=== PATIENT | male | born 1990 | race Caucasian/White ===

== ENCOUNTER 2024-09-17 19:43 | Emergency (ER) | payer SELFPAY ==
[2024-09-17 19:52] VITALS: BP 134/87
[2024-09-17 20:05] LABS: % Basophils 0.5 % (0-2); % Eosinophils 2.1 % (0-6); % Immature Granulocytes 0.5 % (0-0.5); % Lymphocytes 30.7 % (20.5-51.1); % Monocytes 5.7 % (1.7-9.3); % Neutrophils 60.5 % (42.2-75.2); Absolute Eosinophils 0.2 10^3/uL (0-0.7); Absolute Lymphocytes 2.6 10^3/uL (1.2-3.4); Absolute Monocytes 0.5 10^3/uL (0.1-0.6); Absolute Neutrophils 5.1 10^3/uL (1.4-6.5); Hematocrit 44.6 % (39.0-52.0); Hemoglobin 15.5 g/dL (13.0-18.0); Mean Corp Hgb Conc. 34.8 g/dL (33.0-37.0); Mean Corpuscular Hgb 30.4 pg (27.0-31.0); Mean Corpuscular Volume 87.5 fL (80.0-94.0); Nucleated Red Blood Cells % 0 % (-); Platelet Count 191 10^3/uL (130-400); Red Cell Dist. Width 12.3 % (11.5-14.5); White Blood Cell Count 8.5 10^3/uL (4.8-10.8)
[2024-09-17 20:26] LABS: ALT (SGPT) 38 U/L (0-50); AST (SGOT) 28 U/L (17-59); Albumin 4.8 g/dl (3.5-5.0); Alkaline Phosphatase 43 U/L (38-126); Blood Urea Nitrogen 12 mg/dl (9-20); Calcium 9.3 mg/dl (8.4-10.2); Carbon Dioxide 28 mmol/L (22-30); Chloride 99 mmol/L (98-107); Glucose 117 mg/dl (70-99); Sodium 137 mmol/L (135-145); eGFR > 60.00
[2024-09-17 20:38] LABS: Troponin I < 0.012 ng/ml
[2024-09-17 22:00] VITALS: BP 125/76
--- NOTE | 2024-09-17 22:14 | ED.GENMED ---
History of Present Illness
General
Chief Complaint: Chest Pain
Time Seen by Provider: 09/17/24 21:48
History of Present Illness
History of Present Illness:
34-year-old male with history of high blood pressure presenting for intermittent left-sided chest pain. Reports symptoms for the past 3 days. Denies any inciting event to the symptoms. Denies any exertional component. Pain is sharp in quality
and lasts about a second, resolves on its own. Denies known history of cardiac issues. Denies difficulty breathing. Denies history of blood clot, recent surgery, recent travel. Denies cough or fever or recent illness. Denies abdominal pain or
GI symptoms. Denies additional acute medical complaints
Phy Exam
Physical Exam
Physical Exam:
General: Well-appearing, no clinical signs of dehydration, nontoxic and in no acute distress
HEENT: protecting airway
Neck: appears supple
CV: Normal heart rate, regular rhythm, no evidence of cyanosis
Resp: No accessory muscle use, no increased work of breathing, lungs clear to auscultation bilaterally
Abd: Soft and non-distended, no tenderness to palpation
Extremities: No deformities, no swelling, no erythema
Neuro: alert, no focal neurologic deficit
: deferred
Rectal: deferred
Psych: Normal affect
Skin: Intact
Scores
Heart Score for Chest Pain Patients
STEMI patient?: No
History: Slightly or Non-Suspicious
ECG: Normal
Age: </= 45 years
Risk Factors: 1 or 2 Risk Factors
Troponin: </= Normal Limit
Heart Score for Chest Pain Patients: 1
Heart Score Risk: 2.5% MACE over next 6 weeks
Course
Orders/Labs/Results
Orders:
Orders
09/17/24 19:45
EKG [Electrocardiogram (*1)] Urgent
Reason for Study: Chest Pain
EKG- Treatment ONCE
09/17/24 19:54
CR Chest - 2 Views Urgent
Comment:
Reason For Exam: chest pain
09/17/24 19:58
Complete Blood Count/With Diff Urgent
Comprehensive Metabolic Panel Urgent
Troponin I Urgent
Abnormal Lab Results
09/17/24
19:58
Glucose 117 H mg/dl
(70-99)
09/17/24 19:58
09/17/24 19:58
Vital Signs
Initial and Last Documented VS:
Initial Vital Signs
Temp Pulse Resp BP Pulse Ox
98.7 F 82 15 134/87 98
09/17/24 19:52 09/17/24 19:52 09/17/24 19:52 09/17/24 19:52 09/17/24 19:52
Last Documented Vital Signs
Temp Pulse Resp BP Pulse Ox
98.7 F 81 18 125/76 98
09/17/24 19:52 09/17/24 22:00 09/17/24 22:00 09/17/24 22:00 09/17/24 22:00
MDM/Problems Addressed
MDM/Problems Addressed:
34-year-old male with history of hypertension presenting for intermittent chest pain since Wednesday. Vitals are normal.
On exam patient is well-appearing, no acute distress or discomfort. He does not currently have the pain. EKG obtained on arrival, nonischemic, no arrhythmia. Unremarkable cardiac and pulmonary exam. Low suspicion for ACS given low risk patient
and normal EKG. Patient had laboratory analysis prior to my assessment including troponin, undetectable. At this time patient is a low risk by heart score. PERC negative without concern for PE. Chest x-ray without sign of acute abnormality or
pneumothorax. At this time given low risk nature, feel stable for discharge with outpatient follow-up. Will provide information for cardiology. Return precautions discussed and patient verbalized understanding
*EKG
Interpreted by ED Provider?: Yes
EKG Intrepretation Date: 09/17/24
EKG Intrepretation Time: 22:17
Interpretation: normal
Heart Rate: 76
Rate: normal
Rhythm: sinus
[place]: normal axis
Interval: normal interval
QRS Pattern: normal QRS
Ischemia: no ischemia
*Critical Care Note
Total Time (30-74mins, 75-104mins- exclusive of procedures): Not Applicable
ED Attending Note
-
Portions of this chart may have been created with voice recognition software.� Occasional wrong word or��sound alike� substitutions may have occurred due to the inherent limitations of voice recognition software.
Discharge Plan
Departure
Patient Disposition: Home (Routine Discharge)
Date of Disposition: 09/17/24
Time of Disposition: 22:17
Patient with high blood pressure during this ER visit?: No
Discharge Problem:
Chest pain
Instructions: Chest pain - Discharge instructions
Referrals:
Jose L Bryant MD [Active] -
Activity Restrictions/Additional Instructions:
You were seen in the emergency department for chest pain
You were found to have normal EKG, blood work, chest x-ray imaging
Please follow-up closely with your primary care physician.
Return to the emergency department for any worsening of your symptoms, or any development of chest pain, difficulty breathing, abdominal pain with persistent vomiting and inability to tolerate food or liquid by mouth (concern for dehydration),
weakness, headache or confusion, fever greater than 100.4, or any additional symptoms that are concerning to you.
Thank you for choosing [facility].
Interventions
Interventions:
*Risk Screen - Suicide Last Done: 09/17/24 19:52
*General Assessment Last Done: 09/17/24 19:52
*Neglect/Abuse Screening Last Done: 09/17/24 19:52
ED- Fall Risk Assessment Last Done: 09/17/24 22:00
*ED COVID-19 Vaccine History Last Done: 09/17/24 22:00
ED- Cardiac Assessment Last Done: 09/17/24 22:00
Discharge Date and Time
Print Language: CZECH
== END 2024-09-17 22:20 | disposition home or self-care (01) ==
LOC: EMR 19:43
PROVIDERS: EMERGENCY PHYSICIAN Student in an Organized Health Care Education/Training Program
DX: R07.89 Other chest pain (principal); I10 Essential (primary) hypertension
CPT/HCPCS: 99285; 71046; 80053; 84484; 85025; 93005